=== PATIENT | male | born 1965 | race Caucasian/White ===

== ENCOUNTER 2022-10-13 12:03 | Emergency (ER) | payer BC, OTHER ==
[2022-10-13] MEDS ORDERED: Lidocaine 1% (PF) 30 ML VIAL ONE (12:30)
[2022-10-13] MEDS ORDERED: Boostrix 0.5 ML (Tdap) VIAL (>/=7 yrs of age) ONE (12:58)
== END 2022-10-13 13:21 | disposition home or self-care (01) ==
LOC: BURERS 12:03
DX: S62.632A Displaced fracture of distal phalanx of right middle finger, initial encounter for closed fracture (principal); F17.210 Nicotine dependence, cigarettes, uncomplicated; W20.8XXA Other cause of strike by thrown, projected or falling object, initial encounter; Z23 Encounter for immunization
CPT/HCPCS: 12002; 90471; 90715; J2001